=== PATIENT | male | born 1980 | race Caucasian/White ===

== ENCOUNTER 2020-04-16 21:53 | Emergency (ER) | payer OTHER ==
[~2020-04-16] VITALS: Ht 177.8 cm; Wt 158.8 kg
[~2020-04-16 21:53] MED LIST: CODACE30 PO; CRUTCH2 USE; HYDACE5 PO; IBUP600 PO; LISI5 PO; NAPR500 PO; OXYACE5T PO; Prednisone50 MG PO; RXHYDACE PO; RXOXYACE PO; SERT100 PO; VARE1
[2020-04-17] MEDS ORDERED: CEPH500 PO (00:11)
== END 2020-04-17 00:30 | disposition home or self-care (01) ==
LOC: ER 21:53
DX: S61.432A Puncture wound without foreign body of left hand, initial encounter (principal); Z23 Encounter for immunization; Z79.899 Other long term (current) drug therapy; X58.XXXA Exposure to other specified factors, initial encounter
CPT/HCPCS: 73120; 90471; 90714; 99283-25; A9270-GY